=== PATIENT | female | born 1980 | race African-American/Black ===

== ENCOUNTER 2023-08-12 07:18 | Emergency (ER) | payer MEDICARE, MEDICAID ==
[~2023-08-12] VITALS: Ht 162.6 cm; Wt 75.0 kg
[~2023-08-12 07:18] MED LIST: SUMATRIPTAN SUCC
[2023-08-12 07:25] VITALS: O2SAT 100
[2023-08-12 08:09] LABS: PROTHROMBIN TIME 10.4 sec (9.6-11.0)
[2023-08-12 08:17] LABS: BASOPHILS % 0.9 % (0.0-2.0); EOSINOPHILS % 3.3 % (0.0-5.0); HEMATOCRIT. 37.6 % (36.0-48.0); HEMOGLOBIN. 12.3 g/dL (12.0-16.0); LYMPHOCYTES % 49.8 % (20.0-50.0); MEAN CORPUSCULAR HEMOGLOBIN 27.2 pg (28.0-32.0); MEAN CORPUSCULAR HGB CONC 32.7 g/dL (31.0-37.0); MEAN CORPUSCULAR VOLUME 83.3 fL (81.0-99.0); MEAN PLATELET VOLUME 9.1 fl (7.4-10.4); PLATELET 253 x1000/uL (130-400); RED BLOOD CELL COUNT 4.52 mill/uL (4.2-5.4); RED CELL DISTRIBUTION WIDTH 14.7 % (11.6-14.6)
[2023-08-12 08:57] LABS: ALANINE AMINOTRANSFERASE 18 IU/L (10-49); ALBUMIN 3.8 g/dL (3.2-4.8); ASPARTATE AMINOTRANSFERASE 20 IU/L (<34); BILIRUBIN TOTAL 0.4 mg/dL (0.1-1.0); CARBON DIOXIDE 23 mEq/L (21-32); CHLORIDE 110 mEq/L (98-107); CREATININE 0.6 mg/dL (0.6-1.0); GLUCOSE 72 mg/dL (70-105); POTASSIUM 4.2 mEq/L (3.5-5.1); PROTEIN TOTAL 6.4 g/dL (6.0-8.3); SODIUM 142 mEq/L (136-145); UREA NITROGEN BLOOD 7 mg/dL (9-23)
[2023-08-12 09:25] LABS: TROPONIN I HIGH SENSITIVITY 4 ng/L (3.0-34)
[2023-08-12 10:08] LABS: HCG SCREEN NEGATIVE
[2023-08-12 13:56] VITALS: BP 119/63; PULSE 70; RESP 18; TEMP 98
[2023-08-13] MEDS ORDERED: IOHEXOL-350 100 ML BOTTLE ONE (10:46)
== END 2023-08-12 14:08 | disposition home or self-care (01) ==
LOC: ER 07:18
DX: R07.89 Other chest pain (principal)
CPT/HCPCS: 99285; 71275; 71045; 80053; 84703; 83880; 85025; 85379; 85610; 84484; 36415; 93005; Q9967